=== PATIENT | male | born 1960 | race Hispanic/Latino ===

== ENCOUNTER 2019-04-23 17:30 | Inpatient (IN) | payer BC, SELFPAY ==
[2019-04-23 18:33] LABS: #Eosinphils 0.1 thou/uL (0.0-0.7); #Lymphocytes 1.3 thou/uL (1.20-3.40); #Monocytes 0.8 thou/uL (0.11-0.59); #Neutrophils 7.5 thou/uL (1.40-6.50); %Basophils 0.2 % (0.0-1.0); %Eosinophils 0.7 % (0.0-10.0); %Monocytes 8.2 % (0.0-10.0); Hemoglobin 15.1 g/dL (14.0-18.0); Mean Corpuscular HGB CONC 35.6 g/dL (32.0-36.0); Mean Corpuscular Hemoglobin 32.8 pg (27.0-31.0); Mean Corpuscular Volume 92.2 fL (78.0-98.0); Mean Platelet Volume 8.6 fL (7.4-10.4); Platelet Count 238 thou/uL (130-400); RBC Distribution Width 11.1 % (11.5-14.5); White Blood Cell (WBC) Count 9.6 thou/uL (4.8-10.8)
--- NOTE | 2019-04-23 18:50 | RAD ---
XR Foot Lt 3 View STANDARD History: Pain Comparison: None. Findings: There is erosion of the distal phalanx tuft small toe. Curvilinear radiopacity projects ove r the nail of the fourth toe. Osseous erosion of the proximal phalanx head middle toe with extensive soft tissue swelling. Large osteophyte of the calcaneus at the calcaneocuboid joint. Impression: 1. Findings concerning for osteomyelitis proximal phalanx head and neck middle toe. 2. Curvilinear radiopacity seen over the nailbed of the left fourth toe only on the AP radiograph.
[2019-04-23 18:58] LABS: ALT (SGPT) 11 U/L (8-55); AST (SGOT) 13 U/L (5-34); Albumin 4.2 g/dL (3.5-5.0); Alkaline Phosphatase 92 U/L (40-110); Anion Gap 12 mmol/L (10-20); BUN (Urea Nitrogen) 9 mg/dL (8.4-25.7); Bilirubin, Total 0.9 mg/dL (0.2-1.2); Calc. Creatinine Clearance 0 mL/min (70-130); Calcium 9.4 mg/dL (7.8-10.44); Carbon Dioxide 27 mmol/L (22-29); Chloride 100 mmol/L (98-107); Estimated GFR-MDRD 85; Globulin 3.2 g/dL (2.4-3.5); Glucose 318 mg/dL (70-105); Protein, Total 7.4 g/dL (6.0-8.3); Sodium 135 mmol/L (136-145)
[2019-04-23] MEDS ORDERED: MEROPENEM 1 GM/50 ML BAG IVPB SCH (20:00)
[2019-04-23] MEDS ORDERED: Acetaminophen 650 MG Suppository PR PRN (23:33)
[2019-04-23] MEDS ORDERED: Ondansetron PF 4 MG/2 ML Vial IVP PRN (23:33)
[2019-04-23] MEDS ORDERED: Ondansetron ODT 4 MG TAB PO PRN (23:33)
[2019-04-23] MEDS ORDERED: Acetaminophen 325 MG TAB PO PRN (23:33)
[2019-04-24] MEDS ORDERED: Dextrose 5% in Water 1,000 ML IV PRN (03:03)
[2019-04-24] MEDS ORDERED: HumaLOG 300 UNITS/3 ML VIAL SC PRN (03:03)
[2019-04-24] MEDS ORDERED: Dextrose 50% Abboject 50 ML SYRINGE SLOW IVP PRN (03:03)
[2019-04-24] MEDS: HumaLOG 300 UNITS/3 ML VIAL SC PRN (05:27)
[2019-04-24] MEDS: Piperacillin/Tazobactam 4.5 GM in Sodium Chloride 0.9% 100 ML IVPB SCH ×3 (05:27→19:49)
[2019-04-24 05:29] LABS: #Eosinphils 0.1 thou/uL (0.0-0.7); #Lymphocytes 1.5 thou/uL (1.20-3.40); #Neutrophils 6.3 thou/uL (1.40-6.50); %Basophils 0.2 % (0.0-1.0); %Eosinophils 1.6 % (0.0-10.0); %Lymphocytes 17.2 % (21.0-51.0); %Monocytes 10.6 % (0.0-10.0); %Neutrophils 70.4 % (42.0-75.0); Mean Corpuscular HGB CONC 35.7 g/dL (32.0-36.0); Mean Corpuscular Hemoglobin 33.1 pg (27.0-31.0); Mean Corpuscular Volume 92.8 fL (78.0-98.0); Mean Platelet Volume 8.7 fL (7.4-10.4); Platelet Count 221 thou/uL (130-400); RBC Distribution Width 11.1 % (11.5-14.5); Red Blood Cell (RBC) Count 3.94 mill/uL (4.70-6.10)
[2019-04-24 05:43] LABS: Anion Gap 10 mmol/L (10-20); BUN (Urea Nitrogen) 7 mg/dL (8.4-25.7); Calc. Creatinine Clearance 96 mL/min (70-130); Calcium 8.3 mg/dL (7.8-10.44); Carbon Dioxide 25 mmol/L (22-29); Chloride 104 mmol/L (98-107); Estimated GFR-MDRD Greater than 90; Glucose 221 mg/dL (70-105); Potassium 3.6 mmol/L (3.5-5.1); Sodium 135 mmol/L (136-145)
--- NOTE | 2019-04-24 06:31 | HP ---
PRIMARY CARE DOCTOR: The patient has no PCP. CODE STATUS: Full code. TIME OF EVALUATION: 09:30 p.m. CHIEF COMPLAINT: Swelling to the left ankle. HISTORY OF PRESENT ILLNESS: This is a 58-year-old male patient with past medical history of diabetes type 2, came, who have no treatment at home. No primary care doctor. Came to the hospital after having swelling of the left ankle and also sole of his third toe. The symptoms started 15 days ago with no clear triggers, no alleviating factors, and has been gradually getting worse until the point that the pain does not allow him to do his activities of daily living. REVIEW OF SYSTEMS: CONSTITUTIONAL: No fever or chills. The patient has generalized weakness. RESPIRATORY: No cough, sputum production, or shortness of breath. CARDIOVASCULAR: No chest pain or palpitation. GASTROINTESTINAL: No nausea. No vomiting, diarrhea, or abdominal pain. PHP SOFTWARE ENGINEER: No dizziness, headache, or feeling lightheaded. GENITOURINARY: No burning urination. EXTREMITIES: The patient has left foot swelling with nonhealing ulcer on the third toe. All other systems were reviewed and negative except for the findings mentioned above. PAST MEDICAL HISTORY: Positive for diabetes type 2. PAST SURGICAL HISTORY: No surgical history. PSYCHIATRIC HISTORY: No previous psych history. SOCIAL HISTORY: The patient drinks socially twice a month. No drugs. No smoking history. FAMILY HISTORY: Mother had diabetes. KNOWN ALLERGIES: No known drug allergies. REPORTED MEDICATIONS: None. PHYSICAL EXAMINATION: VITAL SIGNS: On presentation, blood pressure 167/77, heart rate 78, respiratory rate was 20, and temperature 99.5. Pain was 0/10. Oxygen saturation was 99% on room air. GENERAL APPEARANCE: The patient is alert, oriented, in no acute distress. HEENT: Eyes, normal conjunctivae. Moist oral mucosa. Anicteric. No JVD. RESPIRATORY: Bilateral air entry. No rales. No wheezes. Symmetric expansion. CARDIOVASCULAR: Normal rate. Regular rhythm. No murmurs. No gallop. No edema. ABDOMEN: Soft. Normal bowel sounds. MUSCULOSKELETAL: Baseline range of motion and strength except for the left foot and third toe on the left foot that has a nonhealing ulcer. It is very tender, swelling, has redness. SKIN: Warm and intact. No pallor. No rash. No redness. There are some chronic skin trophic changes in bilateral lower extremities. NEURO: No evidence of any new focal weakness. Cranial nerves seem to be intact. PSYCH: The patient is in good mood. No anxiety. Optimal judgment. DIAGNOSTIC STUDIES: X-ray of the foot shows findings concerning for osteomyelitis proximal phalanx, head and neck of the middle toe. Curvilinear radiopacity seen over the nailbed of the left fourth toe, all in the IP radiography. LABORATORY DATA: Reviewed. The patient has a white count 9.6, hemoglobin 15.1, MCV 92.2, platelet count 238, neutrophils 78, and lymphocytes 13. Sodium 135, potassium 4.0, chloride 100, carbon-dioxide 27, anion gap 12, BUN 9, creatinine 0.91, GFR 85, glucose 319, lactic acid 1.2, and total bilirubin 0.9. LFTs were negative. C-reactive protein 5.37. ASSESSMENT AND PLAN: The patient will be placed in the hospital with following medical problems. 1. Osteomyelitis of the foot and toe. The patient has been placed on antibiotics. We will consult Dr. Oviedo. Follow up sensitivity. Adjust treatment as per sensitivity, continue hydration. 2. Uncontrolled diabetes. The patient has hyperglycemia with glucose of 387. We will monitor. We will start the patient on sliding scale and adjust insulin dose as per the patient's response to treatment. 3. Deep vein thrombosis prophylaxis. Job ID: [id number]
[2019-04-24] MEDS: Enoxaparin Sodium 40 MG/0.4 ML SYRINGE SC SCH (10:01)
[2019-04-24] MEDS: Vancomycin HCl 1 GM in Premix Bag 1 BAG IVPB SCH (13:02)
[2019-04-24 14:09] VITALS: BMI 28.0
[2019-04-24] MEDS ORDERED: Polyethylene Glycol 3350 17 GM Packet PO PRN (15:32)
--- NOTE | 2019-04-24 15:40 | CON ---
DATE OF CONSULTATION: 04/24/2019 REASON FOR CONSULTATION: Foot osteomyelitis. HISTORY OF PRESENT ILLNESS: A 58-year-old, history of type 2 diabetes with poor medical followup, who was admitted yesterday with persistent swelling of the left ankle and third toe and pain in the distal aspect of the left foot. Initial evaluation with a temperature 99.5, BP 170/90, and pulse 64. The exam findings were remarkable for erythema of the left forefoot dorsal aspect and swelling of the left third toe with a little fissure, which probes to bone at the proximal phalanx lateral aspect of left third toe. The patient was admitted and placed on Zosyn and vancomycin. Currently, he is awake and alert. Denies any headaches, visual symptoms, sore throat, odynophagia, dysphagia. No cough, sputum production, or chest pain. No abdominal pain or diarrhea. No genitourinary symptoms. No other joint symptoms. No neurological symptoms. PAST MEDICAL HISTORY: Type 2 diabetes with poor medical followup. PAST SURGICAL HISTORY: No surgical history. SOCIAL HISTORY: Works with [employer] for [employer]. Drinks occasionally. Smokes daily about half a pack a day. . ALLERGIES: NONE. MEDICATIONS: Had not been taking medications for admission. Now, he is on, 1. P.r.n. medications. 2. Insulin. 3. Zosyn. 4. Vancomycin. PHYSICAL EXAMINATION: VITAL SIGNS: T-max 99.4, blood pressure 120/60, pulse 51, respirations 18, and O2 saturation 98%. SKIN: Shows the swelling of the left third toe with fissure at the lateral aspect of the middle of the third toe, which seems to communicate all the way to the bone. Some intertriginous maceration noted between the third and fourth and second and third toes. No lymphadenopathy. HEENT: Noncontributory. NECK: Supple. LUNGS: Symmetric. Clear breath sounds. HEART: S1 and S2. Regular rate. No S3 or S4. ABDOMEN: Soft, not distended or tender. No ascites. No bladder distention. GENITOURINARY: No genital abnormalities. EXTREMITIES: Pulses are 2+ in popliteal and dorsalis pedis. Cap refill is normal. Moves extremities equally. NEUROLOGIC: Cognitive function appears to be intact. LABORATORY DATA: White cell count was 9.6 and 9.0, hemoglobin 15, platelets 238, 78% neutrophils. Chemistry with a sodium of 135, creatinine 0.75. Liver profile normal. Albumin 4.2, and 2 sets of blood cultures thus far no growth. X-ray showed area of osteolysis of the distal aspect of the third toe proximal phalanx, the head of the proximal phalanx of third toe was pretty much destroyed. 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 DISCUSSION: The patient has excellent vascular supply, but there is too much destruction of the distal phalanx to allow conservative management and he will need surgical consultation for amputation of the third toe cultures and then transition to oral antimicrobial therapy for few days depending on the margin of clearance. The forefoot area has some cellulitis, but I do not think there is evidence to suggest abscess at this point in time. Job ID: [id number]
[2019-04-24] MEDS ORDERED: Sodium Chloride 0.45% 1,000 ML IV SCH (15:45)
--- NOTE | 2019-04-24 16:59 | CON ---
DATE OF CONSULTATION: HISTORY OF PRESENT ILLNESS: A 58-year-old male patient works at [employer], Pashto speaking only. I have used the price checker phone during this interaction. The patient has had a left third toe wound present for several weeks. He is admitted with cellulitis of his left foot. X-rays demonstrated osteomyelitis of the phalanx of the left third toe. Medical Service has admitted him. Orders written last night at 7:10. There was a consult placed to me this morning at 0751 hours. I was never called about this. I saw the patient on my patient list this afternoon. The patient had eaten breakfast. The patient has a wound over his lateral left third toe with purulent discharge and wound extends to the phalanx. X-rays demonstrate osteomyelitis. I have made him n.p.o., but by the time I see him and found him on my list (I was never informed this consult by any physician or tractor mechanic apprentice or nurse). I cannot get into the operating room until late this evening, thus his operation will have to be postponed until tomorrow. I have explained the patient, he needs amputation of left third toe. We will plan amputation of left third toe with application of the wound VAC and he continue intravenous antibiotics over the weekend. We will review the wound on Sunday. We will make arrangement for outpatient wound care anticipating discharge home early next week. ALLERGIES: NONE. SOCIAL HISTORY: Tobacco, 5 to 10 cigarettes a day. Alcohol, none. MEDICATIONS: None. In the hospital, he is on; 1. Insulin. 2. Zosyn. 3. Vancomycin. 4. Diabetic medications. PAST MEDICAL HISTORY: Diabetes mellitus type 2. He does not take any medications. PAST SURGICAL HISTORY: Past surgeries, none. SOCIAL HISTORY: The patient works at [employer]. PHYSICAL EXAMINATION: VITAL SIGNS: A 5 feet tall, 143 pounds, and 28 BMI. 98.5 degrees, 53, and 161/76. LUNGS: Clear to auscultation. CARDIAC: Regular rate and rhythm without murmur or gallop. ABDOMEN: Soft and nontender. EXTREMITIES: Palpable femoral, popliteal, dorsalis pedis, and posterior tibial pulses. Hair on his feet and toes. Cellulitis and edema left foot to the ankle. Left third toe edema and swelling with lateral ulcer in the web space, lateral aspect of the left third toe with extension to the bone and purulent discharge. LABORATORY DATA: White count 9 and hemoglobin 13. Basic metabolic profile normal. BUN 7, creatinine 0.75, and glucose 209. ASSESSMENT AND PLAN: 1. Noncompliant diabetes mellitus. 2. Diabetic infection with osteomyelitis left third toe. We will plan amputation of left third toe tomorrow, as by the time I am notified, this patient has eaten breakfast and I cannot get in the operating room until late this evening. I was not notified of this consult, but found it on my list. The patient understands risks and benefits, consents. Job ID: [id number]
--- NOTE | 2019-04-24 19:44 | PRG ---
DATE OF SERVICE: 04/24/2019 SUBJECTIVE: A 58-year-old male with diabetes mellitus, type 2 with medication noncompliance, presented to the hospital with left foot swelling. His workup in the ER was consistent with suspected osteomyelitis of the left third toe. He denies any fever or chills at this time. His temperature on admission was 99.4. REVIEW OF SYSTEMS: No chest pain, shortness of breath, nausea, vomiting, diarrhea reported. PHYSICAL EXAMINATION: VITAL SIGNS: Temperature 98.5, pulse of 53, respirations 20, blood pressure 161/76, O2 saturation 98% on room air. GENERAL: A 58-year-old male, in no apparent distress. LUNGS: Clear to auscultation bilaterally. No wheezing, rales, or rhonchi. HEART: S1 and S2 present. Regular rate and rhythm. No rubs or gallops. ABDOMEN: Soft, nontender. Bowel sounds present. EXTREMITIES: There is erythema over the left third toe with fissure over the lateral aspect, communicating all the way to the bone. There was also some skin maceration between the toes. PSYCHIATRY: Alert, awake, and oriented x3. Normal affect. LABORATORY FINDINGS: ESR of 13, CRP 5.37, blood sugar on admission was 318, sodium 135, potassium 4.0, hemoglobin 15.1. Foot x-ray by my review showed osteomyelitis of the third toe. IMPRESSION: 1. Diabetic foot infection with osteomyelitis of the left third toe. 2. Diabetes mellitus type 2, uncontrolled. 3. Hyponatremia. 4. Elevated inflammatory markers. 5. Medication noncompliance. 6. Tobacco dependence. PLAN: IV vancomycin and Zosyn will be continued. We will continue wound care. We will consult General Surgery and Infectious Disease. We will recheck labs in a.m. We will check hemoglobin A1c. We will keep him n.p.o. past midnight. Plan of care was discussed with the patient in detail. He stated understanding. Job ID: [id number]
[2019-04-24] MEDS ORDERED: Senokot S 8.6-50 MG TAB PO SCH (21:00)
[2019-04-25] MEDS: Vancomycin HCl 1 GM in Premix Bag 1 BAG IVPB SCH ×2 (00:37→14:22)
[2019-04-25] MEDS: Piperacillin/Tazobactam 4.5 GM in Sodium Chloride 0.9% 100 ML IVPB SCH ×3 (05:32→20:32)
[2019-04-25] MEDS: Enoxaparin Sodium 40 MG/0.4 ML SYRINGE SC SCH (07:32)
[2019-04-25] MEDS: Saccharomyces boulardii 250 MG CAP PO SCH (07:32)
[2019-04-25] MEDS ORDERED: Sodium Chloride 0.9% 1,000 ML IV SCH (08:00)
[2019-04-25 08:04] LABS: Hemoglobin A1c 9.3 % (4.0-6.0)
[2019-04-25 08:15] LABS: Anion Gap 10 mmol/L (10-20); BUN (Urea Nitrogen) 8 mg/dL (8.4-25.7); Calc. Creatinine Clearance 91 mL/min (70-130); Calcium 8.6 mg/dL (7.8-10.44); Carbon Dioxide 25 mmol/L (22-29); Chloride 104 mmol/L (98-107); Estimated GFR-MDRD Greater than 90; Glucose 236 mg/dL (70-105); Potassium 3.9 mmol/L (3.5-5.1); Sodium 135 mmol/L (136-145)
[2019-04-25] MEDS ORDERED: Sodium Chloride 0.9% 100 ML ONE (13:15)
[2019-04-25] MEDS ORDERED: Acetaminophen 500 MG TAB PO PRN (14:51)
[2019-04-25] MEDS ORDERED: Fentanyl 100 MCG/2 ML VIAL ONE ×2 (14:54→15:56)
[2019-04-25] MEDS ORDERED: Promethazine HCl 25 MG/ML VIAL IM PRN (15:59)
[2019-04-25] MEDS ORDERED: Ondansetron HCl/PF 4 MG/2 ML Vial IVP PRN (15:59)
[2019-04-25] MEDS ORDERED: Promethazine HCl 25 MG/ML VIAL SLOW IVP PRN (15:59)
[2019-04-25] MEDS: HumaLOG 300 UNITS/3 ML VIAL SC PRN (17:37)
[2019-04-25] MEDS: metFORMIN 500 MG TAB PO SCH (17:37)
[2019-04-25] MEDS: traMADol HCl 50 MG TAB PO PRN (20:30)
--- NOTE | 2019-04-25 20:41 | OP ---
DATE OF PROCEDURE: 04/24/2019 PREOPERATIVE DIAGNOSIS: Diabetic infection with osteomyelitis, left third toe. POSTOPERATIVE DIAGNOSIS: Diabetic infection with osteomyelitis, left third toe. PROCEDURE PERFORMED: Amputation of left third toe through the proximal phalanx, culture submitted. ANESTHESIA: Regional (ankle block), TIVA. DESCRIPTION OF PROCEDURE: The patient was taken to the operating room where under intravenous sedation, regional ankle block, the left lower extremity was prepared with Betadine and draped in routine fashion. Amputation of left third toe was performed with a racquet incision, transecting the proximal phalanx with a rongeur to healthy bone. Connective tissue debrided sharply. Wound irrigated. Culture had been obtained, submitted to Microbiology. The patient tolerated the procedure well. Wound care team arrived to place wound VAC, there was healthy bleeding. The patient had palpable pulses. Job ID: [id number]
--- NOTE | 2019-04-25 21:24 | PDOC.HOSPP ---
- Subjective Encounter Date: 04/25/19 Encounter Time: 07:00 Subjective: Patient seen and examined for diabetic foot infection. No fever/N/V. No overnight events - Objective Vital Signs & Weight: Vital Signs (12 hours) Temp Pulse Resp BP BP Pulse Ox 04/25/19 20:00 98.6 F 54 L 16 148/83 H 99 04/25/19 16:40 97.9 F 54 L 18 156/76 H 97 04/25/19 11:00 97.6 F 49 L 16 162/80 H 99 Weight Admit Weight 143 lb 5 oz Weight 143 lb 5 oz I&O: 04/24/19 04/25/19 04/26/19 06:59 06:59 06:59 Intake Total 600 Balance 600 Result Diagrams: 04/24/19 05:12 04/25/19 07:39 Additional Labs: Accuchecks 04/25/19 04/25/19 04/25/19 20:27 16:59 11:14 POC Glucose 218 H 191 H 221 H 04/25/19 04:31 POC Glucose 199 H Hospitalist ROS - Review of Systems Respiratory: denies: cough, dry, shortness of breath, hemoptysis, SOB with excertion, pleuritic pain, sputum, wheezing, other Cardiovascular: denies: chest pain, palpitations, orthopnea, paroxysmal noc. dyspnea, edema, light headedness, other - Medication Medications: Active Medications Generic Name Dose Route Start Last Admin Trade Name Freq PRN Reason Stop Dose Admin Enoxaparin Sodium 40 mg 04/24/19 09:00 04/25/19 07:32 Lovenox SC Not Given 0900 GERALDINE Piperacillin Sod/Tazobactam 100 mls @ 200 mls/hr 04/24/19 05:00 04/25/19 20: 32 Sod 4.5 gm/ Sodium Chloride IVPB 100 mls 0500,1300,2100 GERALDINE Administration Vancomycin HCl 1 gm/ Device 200 mls @ 200 mls/hr 04/24/19 12:00 04/25/19 14: 22 IVPB Not Given 1200,2359 GERALDINE Insulin Human Lispro 0 units 04/24/19 03:03 04/25/19 17:37 Humalog SC 2 unit .MILD SLIDING SCALE PRN Administration Mild Correctional Scale Insulin Human Lispro 0 units 04/24/19 03:03 04/25/19 20:33 Humalog SC 2 unit .BEDTIME SLIDING SC PRN Administration Bedtime Correctional Scale Metformin HCl 500 mg 04/25/19 17:00 04/25/19 17:37 Glucophage PO 500 mg BID-WM GERALDINE Administration Saccharomyces Boulardii 250 mg 04/25/19 09:00 04/25/19 07:32 Florastor PO Not Given DAILY GERALDINE Tramadol HCl 50 mg 04/24/19 15:32 04/25/19 20:30 Ultram PO 50 mg Q4H PRN Administration Moderate Pain (4-6) - Exam General Appearance: NAD Heart: RRR, no gallops Respiratory: CTAB, no rales Gastrointestinal: soft, non-tender, non-distended, normal bowel sounds Extremities: no edema Extremities - other findings: no new findings Hosp A/P - Plan DVT proph w/lovenox, DVT proph w/SCDs IMPRESSION: 1. Diabetic foot infection with osteomyelitis of the left third toe. 2. Diabetes mellitus type 2, uncontrolled. 3. Hyponatremia. 4. Elevated inflammatory markers. 5. Medication noncompliance. 6. Tobacco dependence. PLAN: Cont IV vancomycin and Zosyn Start Glipizide and Metformin Continue wound care. Surgery today
[2019-04-25 23:57] LABS: Vancomycin, Trough 11.5 ug/mL
[2019-04-26] MEDS: Vancomycin HCl 1 GM in Premix Bag 1 BAG IVPB SCH (00:09)
[2019-04-26] MEDS: Vancomycin HCl 1.25 GM in Sodium Chloride 0.9% 250 ML 250 ML IVPB SCH ×3 (00:12→23:43)
[2019-04-26] MEDS: Piperacillin/Tazobactam 4.5 GM in Sodium Chloride 0.9% 100 ML IVPB SCH ×3 (04:54→20:36)
[2019-04-26] MEDS ORDERED: glipiZIDE 5 MG TAB PO SCH (07:30)
[2019-04-26] MEDS: metFORMIN 500 MG TAB PO SCH ×2 (08:22→17:29)
[2019-04-26] MEDS: glipiZIDE 5 MG TAB PO SCH ×2 (08:22→17:29)
[2019-04-26] MEDS: Saccharomyces boulardii 250 MG CAP PO SCH (08:22)
[2019-04-26] MEDS: Enoxaparin Sodium 40 MG/0.4 ML SYRINGE SC SCH (08:23)
[2019-04-26] MEDS: traMADol HCl 50 MG TAB PO PRN ×2 (11:53→17:31)
[2019-04-26] MEDS: HumaLOG 300 UNITS/3 ML VIAL SC PRN (11:54)
--- NOTE | 2019-04-26 17:04 | PRG ---
DATE OF SERVICE: 04/26/2019 SUBJECTIVE: The patient had a surgical amputation by Dr. Cruz at the proximal phalanx level. He is otherwise without any changes, symptoms. OBJECTIVE: VITAL SIGNS: Normal except for elevation of systolic blood pressure. He is afebrile. LUNGS: Clear. HEART: S1, S2. Regular rate. ABDOMEN: Soft. Not distended or tender. LABORATORY DATA: The labs are unremarkable. Cultures from the toe with Streptococcus group C. ASSESSMENT AND DISCUSSION: Type-2 diabetes with chronic fissure, left third toe with osteomyelitis, status post amputation proximal to the area of involvement. At this point, I would advise transition to Keflex 500 mg q.6 hours for discharge planning, treat for about 10 days. Follow up clinical course. We will be glad to follow him up in the clinic. Job ID: [id number]
--- NOTE | 2019-04-26 21:31 | PDOC.HOSPP ---
- Subjective Encounter Date: 04/26/19 Encounter Time: 14:30 Subjective: Patient seen and examined for diabetic foot infection. Pain controlled. No fever or chills. No other complaints. No overnight events - Objective Vital Signs & Weight: Vital Signs (12 hours) Temp Pulse Resp BP Pulse Ox 04/26/19 16:00 98.7 F 54 L 16 160/83 H 93 L 04/26/19 11:34 98.5 F 50 L 20 193/89 H 98 Weight Admit Weight 143 lb 5 oz Weight 143 lb 5 oz I&O: 04/25/19 04/26/19 04/27/19 06:59 06:59 06:59 Intake Total 540 Output Total 400 Balance 140 Result Diagrams: 04/24/19 05:12 04/25/19 07:39 Additional Labs: Accuchecks 04/26/19 04/26/19 04/26/19 20:17 16:38 11:22 POC Glucose 151 H 105 188 H 04/26/19 05:22 POC Glucose 109 Hospitalist ROS - Review of Systems Respiratory: denies: cough, dry, shortness of breath, hemoptysis, SOB with excertion, pleuritic pain, sputum, wheezing, other Cardiovascular: denies: chest pain, palpitations, orthopnea, paroxysmal noc. dyspnea, edema, light headedness, other - Medication Medications: Active Medications Generic Name Dose Route Start Last Admin Trade Name Freq PRN Reason Stop Dose Admin Enoxaparin Sodium 40 mg 04/24/19 09:00 04/26/19 08:23 Lovenox SC 40 mg 0900 GERALDINE Administration Glipizide 5 mg 04/26/19 07:30 04/26/19 17:29 Glucotrol PO 5 mg BID-AC GERALDINE Administration Piperacillin Sod/Tazobactam 100 mls @ 200 mls/hr 04/24/19 05:00 04/26/19 20: 36 Sod 4.5 gm/ Sodium Chloride IVPB 04/26/19 23:59 100 mls 0500,1300,2100 GERALDINE Administration Vancomycin HCl 1.25 gm/ Sodium 250 mls @ 166.667 mls/hr 04/25/19 23:59 13:16 Chloride IVPB 04/27/19 07:00 250 mls 1200,2359 GERALDINE Administration Insulin Human Lispro 0 units 04/24/19 03:03 04/26/19 11:54 Humalog SC 2 unit .MILD SLIDING SCALE PRN Administration Mild Correctional Scale Insulin Human Lispro 0 units 04/24/19 03:03 04/25/19 20:33 Humalog SC 2 unit .BEDTIME SLIDING SC PRN Administration Bedtime Correctional Scale Metformin HCl 500 mg 04/25/19 17:00 04/26/19 17:29 Glucophage PO 500 mg BID-WM GERALDINE Administration Saccharomyces Boulardii 250 mg 04/25/19 09:00 04/26/19 08:22 Florastor PO 250 mg DAILY GERALDINE Administration Tramadol HCl 50 mg 04/24/19 15:32 04/26/19 17:31 Ultram PO 50 mg Q4H PRN Administration Moderate Pain (4-6) - Exam General Appearance: NAD Heart: RRR, no gallops Respiratory: CTAB, no rales Gastrointestinal: soft, non-tender, normal bowel sounds Extremities: no edema Hosp A/P - Plan DVT proph w/SCDs IMPRESSION: 1. Diabetic foot infection with osteomyelitis of the left third toe. 2. Diabetes mellitus type 2, uncontrolled. 3. Hyponatremia. 4. Elevated inflammatory markers. 5. Medication noncompliance. 6. Tobacco dependence. PLAN: DC IV vancomycin and Zosyn Start Keflex x 10d per ID Cont wound vac Cont Glipizide and Metformin Continue wound care. DC home once cleared by Surgery
[2019-04-26] MEDS: Cephalexin 250 MG CAP PO SCH (23:44)
[2019-04-27] MEDS: Cephalexin 250 MG CAP PO SCH ×4 (06:02→23:50)
[2019-04-27] MEDS: traMADol HCl 50 MG TAB PO PRN (09:17)
[2019-04-27] MEDS: glipiZIDE 5 MG TAB PO SCH ×2 (09:17→17:19)
[2019-04-27] MEDS: Saccharomyces boulardii 250 MG CAP PO SCH (09:17)
[2019-04-27] MEDS: metFORMIN 500 MG TAB PO SCH ×2 (09:17→17:19)
[2019-04-27] MEDS: Enoxaparin Sodium 40 MG/0.4 ML SYRINGE SC SCH (09:18)
[2019-04-27] MEDS: HumaLOG 300 UNITS/3 ML VIAL SC PRN (12:01)
--- NOTE | 2019-04-27 16:23 | PDOC.HOSPP ---
- Subjective Encounter Date: 04/27/19 Encounter Time: 10:30 Subjective: pt up in chair no complains - Objective Vital Signs & Weight: Vital Signs (12 hours) Temp Pulse Resp BP Pulse Ox 04/27/19 08:21 98.5 F 58 L 16 155/70 H 97 04/27/19 08:00 97 Weight Admit Weight 143 lb 5 oz Weight 143 lb 5 oz I&O: 04/26/19 04/27/19 04/28/19 06:59 06:59 06:59 Intake Total 540 Output Total 400 Balance 140 Result Diagrams: 04/24/19 05:12 04/25/19 07:39 Additional Labs: Accuchecks 04/27/19 04/27/19 04/26/19 11:04 06:05 20:17 POC Glucose 209 H 122 H 151 H 04/26/19 16:38 POC Glucose 105 Hospitalist ROS - Review of Systems Respiratory: denies: cough, dry, shortness of breath, hemoptysis, SOB with excertion, pleuritic pain, sputum, wheezing, other Cardiovascular: denies: chest pain, palpitations, orthopnea, paroxysmal noc. dyspnea, edema, light headedness, other Gastrointestinal: denies: nausea, vomiting, abdominal pain, diarrhea, constipation, melena, hematochezia, other - Medication Medications: Active Medications Generic Name Dose Route Start Last Admin Trade Name Freq PRN Reason Stop Dose Admin Cephalexin 500 mg 04/26/19 23:59 04/27/19 12:01 Keflex PO 500 mg Q6HR GERALDINE Administration Enoxaparin Sodium 40 mg 04/24/19 09:00 04/27/19 09:18 Lovenox SC 40 mg 0900 GERALDINE Administration Glipizide 5 mg 04/26/19 07:30 04/27/19 09:17 Glucotrol PO 5 mg BID-AC GERALDINE Administration Insulin Human Lispro 0 units 04/24/19 03:03 04/27/19 12:01 Humalog SC 3 unit .MILD SLIDING SCALE PRN Administration Mild Correctional Scale Insulin Human Lispro 0 units 04/24/19 03:03 04/25/19 20:33 Humalog SC 2 unit .BEDTIME SLIDING SC PRN Administration Bedtime Correctional Scale Metformin HCl 500 mg 04/25/19 17:00 04/27/19 09:17 Glucophage PO 500 mg BID-WM GERALDINE Administration Saccharomyces Boulardii 250 mg 04/25/19 09:00 04/27/19 09:17 Florastor PO 250 mg DAILY GERALDINE Administration Tramadol HCl 50 mg 04/24/19 15:32 04/27/19 09:17 Ultram PO 50 mg Q4H PRN Administration Moderate Pain (4-6) - Exam Heart: RRR, no murmur, no gallops Respiratory: no wheezes, no rales Gastrointestinal: soft, non-tender, non-distended Hosp A/P (1) Diabetic foot infection Code(s): E11.628 - TYPE 2 DIABETES MELLITUS WITH OTHER SKIN COMPLICATIONS; L08.9 - LOCAL INFECTION OF THE SKIN AND SUBCUTANEOUS TISSUE, UNSP Status: Acute (2) Osteomyelitis Code(s): M86.9 - OSTEOMYELITIS, UNSPECIFIED Status: Acute (3) Hyponatremia Code(s): E87.1 - HYPO-OSMOLALITY AND HYPONATREMIA Status: Acute (4) Diabetes Code(s): E11.9 - TYPE 2 DIABETES MELLITUS WITHOUT COMPLICATIONS Status: Acute - Plan pt on oral abx, pt needs set up for his wound vac. may be discharged in am if ok with surgery.
[2019-04-28] MEDS: Cephalexin 250 MG CAP PO SCH ×3 (05:50→17:03)
[2019-04-28] MEDS: traMADol HCl 50 MG TAB PO PRN (08:29)
[2019-04-28] MEDS: metFORMIN 500 MG TAB PO SCH ×2 (08:29→17:04)
[2019-04-28] MEDS: glipiZIDE 5 MG TAB PO SCH ×2 (08:29→17:04)
[2019-04-28] MEDS: Saccharomyces boulardii 250 MG CAP PO SCH (08:29)
[2019-04-28] MEDS: Enoxaparin Sodium 40 MG/0.4 ML SYRINGE SC SCH (08:30)
--- NOTE | 2019-04-28 11:33 | EKG ---
Test Reason : URGENT Blood Pressure : / mmHG Vent. Rate : 049 BPM Atrial Rate : 049 BPM P-R Int : 156 ms QRS Dur : 110 ms QT Int : 476 ms P-R-T Axes : 024 086 020 degrees QTc Int : 429 ms Sinus bradycardia T wave abnormality, consider lateral ischemia Abnormal ECG No previous ECGs available Confirmed by Tyrone GRIDER ([id number]) on 04/28/2019 11:32:35 AM Referred By: ELIE Confirmed By:Tyrone GRIDER
--- NOTE | 2019-04-28 18:08 | PRG ---
DATE OF SERVICE: 04/28/2019 Sebas White is doing well today. His dressing was removed. His foot looks very good. There is no evidence of infection or cellulitis. Cultures revealed Streptococcus. At this point, the patient is ready for discharge home with outpatient [facility]. He can be sent on Augmentin 875 p.o. b.i.d. for 10 days. The patient is stable for discharge from my standpoint. I will see him as needed this hospitalization. He will follow up with outpatient wound care. They will call me wound in 2 to 3 weeks or I will see him in the office Job ID: [id number]
[2019-04-29] MEDS: Cephalexin 250 MG CAP PO SCH ×2 (00:31→05:20)
[2019-04-29] MEDS: traMADol HCl 50 MG TAB PO PRN (00:36)
[2019-04-29] MEDS: HumaLOG 300 UNITS/3 ML VIAL SC PRN (05:22)
--- NOTE | 2019-04-29 07:23 | PDOC.HOSPP ---
- Subjective Encounter Date: 04/28/19 Encounter Time: 11:00 Subjective: Patient seen and examined for Osteomyelitis. No fever. Pain controlled. No other complaints. No overnight events - Objective Vital Signs & Weight: Vital Signs (12 hours) Temp Pulse Resp BP Pulse Ox 04/28/19 20:00 98.7 F 54 L 20 161/77 H 96 Weight Admit Weight 143 lb 5 oz Weight 143 lb 5 oz I&O: 04/28/19 04/29/19 04/30/19 06:59 06:59 06:59 Intake Total 1360 Output Total 750 0 Balance -750 1360 Result Diagrams: 04/24/19 05:12 04/25/19 07:39 Additional Labs: Accuchecks 04/29/19 04/28/19 04/28/19 05:09 20:14 16:04 POC Glucose 246 H 155 H 151 H 04/28/19 12:24 POC Glucose 122 H Hospitalist ROS - Review of Systems Cardiovascular: denies: chest pain, palpitations, orthopnea, paroxysmal noc. dyspnea, edema, light headedness, other Gastrointestinal: denies: nausea, vomiting, abdominal pain, diarrhea, constipation, melena, hematochezia, other - Medication Medications: Active Medications Generic Name Dose Route Start Last Admin Trade Name Freq PRN Reason Stop Dose Admin Acetaminophen 1,000 mg 04/25/19 14:51 04/29/19 00:40 Tylenol PO 1,000 mg Q6H PRN Administration Moderate to Severe Pain (6-10) Enoxaparin Sodium 40 mg 04/24/19 09:00 04/28/19 08:30 Lovenox SC 40 mg 0900 GERALDINE Administration Glipizide 5 mg 04/26/19 07:30 04/28/19 17:04 Glucotrol PO 5 mg BID-AC GERALDINE Administration Insulin Human Lispro 0 units 04/24/19 03:03 04/29/19 05:22 Humalog SC 3 unit .MILD SLIDING SCALE PRN Administration Mild Correctional Scale Insulin Human Lispro 0 units 04/24/19 03:03 04/25/19 20:33 Humalog SC 2 unit .BEDTIME SLIDING SC PRN Administration Bedtime Correctional Scale Metformin HCl 500 mg 04/25/19 17:00 04/28/19 17:04 Glucophage PO 500 mg BID-WM GERALDINE Administration Polyethylene Glycol 17 gm 04/24/19 15:32 04/28/19 11:33 Miralax PO 17 gm DAILY PRN Administration Constipation Saccharomyces Boulardii 250 mg 04/25/19 09:00 04/28/19 08:29 Florastor PO 250 mg DAILY GERALDINE Administration Tramadol HCl 50 mg 04/24/19 15:32 04/29/19 00:36 Ultram PO 50 mg Q4H PRN Administration Moderate Pain (4-6) - Exam General Appearance: NAD Heart: RRR, no rubs Respiratory: CTAB, no rales Gastrointestinal: soft, non-tender, normal bowel sounds Extremities: no edema Extremities - other findings: wound vac+ Hosp A/P - Plan IMPRESSION: 1. Diabetic foot infection with osteomyelitis of the left third toe. s/p amputation 2. Diabetes mellitus type 2, uncontrolled. 3. Hyponatremia. 4. Elevated inflammatory markers. 5. Medication noncompliance. 6. Tobacco dependence. PLAN: Cont Keflex per ID Cont wound vac/wound care Cont Glipizide and Metformin DC home once home wound vac arranged
[2019-04-29] MEDS: metFORMIN 500 MG TAB PO SCH ×2 (07:54→16:58)
[2019-04-29] MEDS: Enoxaparin Sodium 40 MG/0.4 ML SYRINGE SC SCH (07:54)
[2019-04-29] MEDS: glipiZIDE 5 MG TAB PO SCH ×2 (07:54→16:58)
[2019-04-29] MEDS: Saccharomyces boulardii 250 MG CAP PO SCH (07:54)
[2019-04-29] MEDS ORDERED: Amoxicillin/Potassium Clav 875 MG TAB PO SCH (09:00)
--- NOTE | 2019-04-29 12:43 | PDOC.HOSPP ---
- Subjective Encounter Date: 04/29/19 Encounter Time: 12:41 Subjective: Patient seen and examined for Osteomyelitis. No fever/chills. No new complaints. No overnight events - Objective Vital Signs & Weight: Vital Signs (12 hours) Temp Pulse Resp BP Pulse Ox 04/29/19 07:55 95 04/29/19 07:50 98.4 F 58 L 18 150/72 H 95 Weight Admit Weight 143 lb 5 oz Weight 143 lb 5 oz I&O: 04/28/19 04/29/19 04/30/19 06:59 06:59 06:59 Intake Total 1360 Output Total 750 0 0 Balance -750 1360 0 Result Diagrams: 04/24/19 05:12 04/25/19 07:39 Additional Labs: Accuchecks 04/29/19 04/29/19 04/28/19 11:37 05:09 20:14 POC Glucose 133 H 246 H 155 H 04/28/19 16:04 POC Glucose 151 H Hospitalist ROS - Review of Systems Respiratory: denies: cough, dry, shortness of breath, hemoptysis, SOB with excertion, pleuritic pain, sputum, wheezing, other Cardiovascular: denies: chest pain, palpitations, orthopnea, paroxysmal noc. dyspnea, edema, light headedness, other - Medication Medications: Active Medications Generic Name Dose Route Start Last Admin Trade Name Freq PRN Reason Stop Dose Admin Acetaminophen 1,000 mg 04/25/19 14:51 04/29/19 00:40 Tylenol PO 1,000 mg Q6H PRN Administration Moderate to Severe Pain (6-10) Amoxicillin/Clavulanate Potassium 875 mg 04/29/19 09:00 04/29/19 07:54 Augmentin PO 875 mg Q12HR GERALDINE Administration Enoxaparin Sodium 40 mg 04/24/19 09:00 04/29/19 07:54 Lovenox SC 40 mg 0900 GERALDINE Administration Glipizide 5 mg 04/26/19 07:30 04/29/19 07:54 Glucotrol PO 5 mg BID-AC GERALDINE Administration Insulin Human Lispro 0 units 04/24/19 03:03 04/29/19 05:22 Humalog SC 3 unit .MILD SLIDING SCALE PRN Administration Mild Correctional Scale Insulin Human Lispro 0 units 04/24/19 03:03 04/25/19 20:33 Humalog SC 2 unit .BEDTIME SLIDING SC PRN Administration Bedtime Correctional Scale Metformin HCl 500 mg 04/25/19 17:00 04/29/19 07:54 Glucophage PO 500 mg BID-WM GERALDINE Administration Polyethylene Glycol 17 gm 04/24/19 15:32 04/28/19 11:33 Miralax PO 17 gm DAILY PRN Administration Constipation Saccharomyces Boulardii 250 mg 04/25/19 09:00 04/29/19 07:54 Florastor PO 250 mg DAILY GERALDINE Administration Tramadol HCl 50 mg 04/24/19 15:32 04/29/19 00:36 Ultram PO 50 mg Q4H PRN Administration Moderate Pain (4-6) - Exam General Appearance: NAD Heart: RRR, no gallops Respiratory: CTAB, no rales Gastrointestinal: soft, non-tender, normal bowel sounds Extremities: no edema Hosp A/P - Plan IMPRESSION: 1. Diabetic foot infection with osteomyelitis of the left third toe. s/p amputation 2. Diabetes mellitus type 2, uncontrolled. 3. Hyponatremia. 4. Elevated inflammatory markers. 5. Medication noncompliance. 6. Tobacco dependence. PLAN: Start Augmentin per Dr Cruz Cont other meds including Glipizide and Metformin Await home wound vac Cont wound vac/wound care
[2019-04-29 18:37] VITALS: BP 158/80; TEMP 98.3
--- NOTE | 2019-04-29 20:12 | DIS ---
DATE OF ADMISSION: 04/23/2019 DATE OF DISCHARGE: 04/29/2019 DISCHARGE DISPOSITION: Home. FOLLOWUP: 1. Follow up with [facility] in 1 week. 2. Follow up with Dr. Cruz as scheduled. ALLERGIES: NO KNOWN DRUG ALLERGIES. DISCHARGE MEDICATIONS: 1. Augmentin 875 mg b.i.d. for next 10 days. 2. Glipizide 5 mg b.i.d. 3. Metformin 500 mg b.i.d. The patient was extensively counseled on diabetes. The patient was seen and examined on the day of discharge. Please refer to my progress notes for detail. BRIEF HOSPITAL COURSE: The patient is a 58-year-old male with diabetes mellitus type 2 and medication noncompliance presented to the hospital with swelling of the left ankle. His workup was consistent with osteomyelitis of the left third toe along with left foot cellulitis. He underwent amputation of the left third toe by Dr. Cruz on April 25, 2019. Postoperatively, he was placed on wound VAC. Home wound VAC has been arranged through [facility]. He appears stable for discharge. His surgical specimen was consistent with acute osteomyelitis with ischemic ulceration. FINAL DIAGNOSES: 1. Left foot diabetic infection along with third toe osteomyelitis. 2. Diabetes mellitus type 2, uncontrolled. His hemoglobin A1c was 9.3. 3. Hyponatremia. 4. Elevated inflammatory markers. 5. Tobacco dependence. 6. Medication noncompliance. PLAN: Plan of care was discussed with the patient in detail. He stated understanding. Coordinating the discharge of this patient was 30. Job ID: [id number]
== END 2019-04-29 18:50 | disposition home or self-care (01) | DRG 617 ==
LOC: ERS 17:30 → T4-A 19:00
PROVIDERS: ADMIT Internal Medicine; ATTEND Internal Medicine
PROC: 0Y6U0Z1 Detachment at Left 3rd Toe, High, Open Approach (ICD-10-PCS; principal; 2019-04-24)
PROC: 3E0234Z Introduction of Serum, Toxoid and Vaccine into Muscle, Percutaneous Approach (ICD-10-PCS; 2019-04-25)
DX: E11.69 Type 2 diabetes mellitus with other specified complication (principal); L03.116 Cellulitis of left lower limb; E87.1 Hypo-osmolality and hyponatremia; M86.172 Other acute osteomyelitis, left ankle and foot; E11.65 Type 2 diabetes mellitus with hyperglycemia; F17.210 Nicotine dependence, cigarettes, uncomplicated; E11.621 Type 2 diabetes mellitus with foot ulcer; L97.529 Non-pressure chronic ulcer of other part of left foot with unspecified severity; Z91.14 Patient's other noncompliance with medication regimen; Z23 Encounter for immunization
CPT/HCPCS: 36415; 36416; 80048; 80053; 80202; 83036; 83605; 85025; 85652; 86140; 87040; 87070; 87077; 87205; 88305; 88311; 90471; 90732; 93005; 93010; 96365; 96367; G0009; J1650; J2185; J2543; J3010; J3370; J3490; J7050

== ENCOUNTER 2019-05-02 11:16 | Outpatient (CLI) | payer BC ==
[~2019-05-02 11:16] MED LIST: Sodium Chloride 0.9% 15 ML NEB ONE
== END 2019-05-02 11:17 | disposition home or self-care (01) ==
LOC: WCC 11:16
PROVIDERS: ATTEND Family Medicine
DX: L03.116 Cellulitis of left lower limb (principal); M86.9 Osteomyelitis, unspecified
CPT/HCPCS: A4218

== ENCOUNTER 2019-05-06 13:00 | Outpatient (CLI) | payer BC ==
[2019-05-06] MEDS ORDERED: Sodium Chloride 0.9% 15 ML NEB ONE (18:00)
== END 2019-05-06 13:01 | disposition home or self-care (01) ==
LOC: WCC 13:00
PROVIDERS: ATTEND Family Medicine
DX: T81.89XD Other complications of procedures, not elsewhere classified, subsequent encounter (principal)
CPT/HCPCS: 97605; A4218

== ENCOUNTER 2019-05-08 15:44 | Outpatient (CLI) | payer BC ==
[~2019-05-08 15:44] MED LIST changes: +Lidocaine 2% PF 100 mg/5 ml Syringe ONE
--- NOTE | 2019-05-08 22:25 | HP ---
HISTORY OF PRESENT ILLNESS: Mr. Sebas White is a very pleasant 58-year-old gentleman, who presents to the wound center for evaluation of a wound of the left third toe subsequent to amputation of the left third toe through the proximal phalanx by Dr. Bakari Cruz on 04/24/2019, for treatment of osteomyelitis of the left third toe. Negative pressure therapy was initiated intraoperatively. Upon discharge from [facility], the patient was referred to the wound center for assistance with dressing changes of the wound VAC. The patient was discharged to home on Augmentin. The patient is Togolese-speaking only. PAST MEDICAL HISTORY: Diabetes mellitus. PAST SURGICAL HISTORY: Amputation of left third toe through the proximal phalanx as per HPI. MEDICATIONS: 1. Glipizide. 2. Metformin. 3. Augmentin. ALLERGIES: NO KNOWN DIAGNOSED ALLERGIES. SOCIAL HISTORY: Significant for tobacco use of 1 pack of cigarettes per day for 40 years. The patient states that he stopped smoking 3 weeks ago. The patient admits to the consumption of 2 drinks per day for 30 years. The patient states that he stopped consuming alcohol 3 weeks ago also. FAMILY HISTORY: Significant for diabetes mellitus. The patient's mother was diagnosed with diabetes mellitus. PHYSICAL EXAMINATION: VITAL SIGNS: Temperature 97.9, pulse 59, respirations 18, and blood pressure 166/71. GENERAL: A 58-year-old gentleman, sitting on chair in examination room, in no acute distress. HEENT: Normocephalic and atraumatic. NECK: No nuchal rigidity. CHEST: Clear to auscultation. CV: Regular rate and rhythm. ABDOMEN: Soft. EXTREMITIES: A wound of the left third toe is present subsequent to amputation of the left third toe through the proximal phalanx. Granulation tissue is present within the wound margins. Necrotic and nonviable tissue present within the wound margins, it was debrided with an excisional full-thickness debridement with the use of a curette. No purulent drainage is associated with the wound. No erythema of the skin surrounding the wound is present. No maceration of the skin of the periwound is noted. A dorsalis pedis pulse is easily palpable on the left. No significant edema of the left foot is present on exam today. No bone is palpable with a curette within the wound margins on today's exam. NEUROLOGIC: Grossly nonfocal. ASSESSMENT AND PLAN: 1. Wound of left third toe subsequent to amputation of the left third toe through the proximal phalanx. The patient has completed a course of negative pressure therapy. Dressing changes of Xeroform gauze are to be performed on a daily basis after cleansing and irrigation. The patient is to continue Augmentin as previously prescribed. I will see Mr. Debby White again in 1 week. The patient will be seen by Dr. Cruz in 2 weeks. With the aid of a lamp shade assembler, the patient states that he understands and is in agreement with the preceding treatment plan. 2. Diabetes mellitus. Accu-Cheks will be obtained at the time of the patient's clinic visits. The patient has been told that for optimal wound healing, his blood glucoses should remain below 150. Job ID: [id number]
== END 2019-05-08 15:45 | disposition home or self-care (01) ==
LOC: WCC 15:44
PROVIDERS: ATTEND Family Medicine
DX: T81.89XD Other complications of procedures, not elsewhere classified, subsequent encounter (principal); E11.9 Type 2 diabetes mellitus without complications; Z89.422 Acquired absence of other left toe(s)
CPT/HCPCS: A4218; J2001

== ENCOUNTER 2019-05-15 12:45 | Outpatient (CLI) | payer BC ==
--- NOTE | 2019-05-15 14:05 | PRG ---
DATE OF SERVICE: 05/15/2019 SUBJECTIVE: Mr. Sebas White is a very pleasant 58-year-old gentleman, who presents to the Wound Center for evaluation of a wound of the left third toe subsequent to amputation of the left third toe through the proximal phalanx by Dr. Bakari Cruz on 04/24/2019 for treatment of osteomyelitis of the left third toe. Negative pressure therapy was initiated intraoperatively. Upon discharge from [facility], the patient was referred to the Wound Center for assistance with dressing changes of the wound VAC. The patient has completed a course of negative pressure therapy and he has been receiving dressing changes of Xeroform gauze on a daily basis after cleansing and irrigation as prescribed. OBJECTIVE: VITAL SIGNS: Temperature 97.6, pulse 58, respirations 18, and blood pressure 157/85. EXTREMITIES: A wound of the left third toe is present subsequent to amputation of the left third toe through the proximal phalanx. The dimensions of the wound are approximately 1.0 x 0.5 cm. Granulation tissue is present within the wound margins. Necrotic and nonviable tissue present within the wound margins was debrided with an excisional full-thickness debridement with the use of a curette and scissors. No purulent drainage is associated with the wound. No erythema of the skin surrounding the wound is present. No maceration of the skin of the periwound is noted. A dorsalis pedis pulse is easily palpable on the left. No significant edema of the left foot is present on exam today. No bone is palpable with a curette within the wound margins on exam today. ASSESSMENT AND PLAN: 1. Wound of left third toe subsequent to amputation of the left third toe through the proximal phalanx. The patient has completed a course of negative pressure therapy. Dressing changes of Xeroform gauze will be discontinued. Dressing changes of Promogran will be initiated today. These dressing changes are to be performed on a daily basis after cleansing and irrigation. I will see Mr. Debby White again in 1 week. The patient states he will be seen by Dr. Cruz in 2 weeks. With the aid of a first mate, the patient states that he understands and is in agreement with the preceding treatment plan. 2. Diabetes mellitus. Accu-Cheks will be obtained at the time of the patient's clinic visits. The patient has been reminded that for optimal wound healing, his blood glucoses should remain below 150. Job ID: [id number]
[2019-05-15] MEDS ORDERED: Sodium Chloride 0.9% 15 ML NEB ONE (16:28)
[2019-05-15] MEDS ORDERED: Lidocaine 2% PF 100 mg/5 ml Syringe ONE (16:28)
== END 2019-05-15 12:46 | disposition home or self-care (01) ==
LOC: WCC 12:45
PROVIDERS: ATTEND Family Medicine
DX: T81.89XD Other complications of procedures, not elsewhere classified, subsequent encounter (principal); E11.621 Type 2 diabetes mellitus with foot ulcer; S91.105D Unspecified open wound of left lesser toe(s) without damage to nail, subsequent encounter; Z89.422 Acquired absence of other left toe(s)
CPT/HCPCS: 11042; A4218; J2001

== ENCOUNTER 2019-05-22 13:35 | Outpatient (CLI) | payer BC ==
[~2019-05-22 13:35] MED LIST changes: -Lidocaine 2% PF 100 mg/5 ml Syringe ONE
--- NOTE | 2019-05-22 14:18 | PRG ---
DATE OF SERVICE: 05/22/2019 HISTORY: Mr. Sebas White is a very pleasant 58-year-old gentleman, who presents to the Wound Center for evaluation of a wound of the left third toe subsequent to amputation of the left third toe through the proximal phalanx by Dr. Bakari Cruz on 04/24/2019 for treatment of osteomyelitis of the left third toe. Negative-pressure therapy was initiated intraoperatively. Upon discharge from [facility], the patient was referred to the Wound Center for assistance with dressing changes of the wound VAC. The patient has completed a course of negative-pressure therapy. He subsequently received dressing changes of Xeroform gauze on a daily basis after cleansing and irrigation. At the time of the patient's last visit, Mr. Debby White was placed on dressing changes of Promogran. PHYSICAL EXAMINATION: VITAL SIGNS: Temperature 97.4, pulse 54, respirations 20, blood pressure 203/95. EXTREMITIES: A wound of the left third toe is present subsequent to amputation of the left third toe through the proximal phalanx. The dimensions of the wound are approximately 0.4 x 0.2 cm. Granulation tissue is present within the wound margins. Necrotic and nonviable tissue present within the wound margins was debrided with an excisional full-thickness debridement with the use of a curette. No purulent drainage is associated with the wound. No erythema of the skin surrounding the wound is present. No maceration of the skin of the periwound is noted. No significant edema of the left foot is present on exam today. No bone is palpable with a curette within the wound margins on today's exam. ASSESSMENT AND PLAN: 1. Wound of left third toe subsequent to amputation of the left third toe through the proximal phalanx. Dressing changes of Promogran will be continued on a daily basis after cleansing and irrigation. I will see Mr. Debby White again in 1 week. 2. Diabetes mellitus. Accu-Cheks will be obtained at the time of the patient's clinic visits. The patient has been reminded that for optimal wound healing, his blood glucoses should remain below 150. Job ID: [id number]
== END 2019-05-22 13:36 | disposition home or self-care (01) ==
LOC: WCC 13:35
PROVIDERS: ATTEND Family Medicine
DX: T81.89XA Other complications of procedures, not elsewhere classified, initial encounter (principal); E11.9 Type 2 diabetes mellitus without complications
CPT/HCPCS: 36416; A4218

== ENCOUNTER 2019-05-28 13:22 | Outpatient (CLI) | payer BC ==
[~2019-05-28 13:22] MED LIST changes: +Lidocaine 2% PF 100 mg/5 ml Syringe ONE
--- NOTE | 2019-05-28 13:57 | PRG ---
DATE OF SERVICE: 05/28/2019 HISTORY: Mr. Sebas White is a very pleasant 58-year-old gentleman, who presents to the Wound Center for evaluation of a wound of the left third toe subsequent to amputation of the left third toe through the proximal phalanx by Dr. Bakari Cruz on 04/24/2019 for treatment of osteomyelitis of the left third toe. Negative pressure therapy was initiated intraoperatively. Upon discharge from [facility], the patient was referred to the Wound Center for assistance with dressing changes of the wound VAC. The patient has completed a course of negative pressure therapy. He subsequently received dressing changes of Xeroform gauze on a daily basis after cleansing and irrigation. Most recently, the patient has been receiving dressing changes of Promogran on a daily basis after cleansing and irrigation. PHYSICAL EXAMINATION: VITAL SIGNS: Temperature 97.7, pulse 52, respirations 19, blood pressure 196/86. Accu-Chek 169. EXTREMITIES: A wound of the left third toe is present subsequent to amputation of the left third toe through the proximal phalanx. The dimensions of the wound are approximately 0.6 x 0.2 cm. Necrotic and nonviable tissue present within the wound margins was debrided with an excisional full-thickness debridement with the use of a curette. No purulent drainage is associated with the wound. No erythema of the skin surrounding the wound is present. No maceration of the skin of the periwound is noted. Callus over the left medial foot in the region of the first metatarsophalangeal joint is also present. The callus was excised with a partial thickness debridement with the use of scissors. No erythema of the left medial foot is present. No maceration of the skin of the left medial foot is present. No significant edema of the left foot is present on exam today. ASSESSMENT AND PLAN: 1. Wound of left third toe subsequent to amputation of the left third toe through the proximal phalanx. Dressing changes of Promogran will be continued on a daily basis after cleansing and irrigation. As stated above, the callus over the left medial foot was excised with an excisional partial thickness debridement with the use of scissors. The patient has been seen by the metal control worker today. I will see Mr. Debby White again on 06/25/2019. At this time, he will also be seen by the metal control worker. 2. Diabetes mellitus. The patient's Accu-Chek in clinic today is 169. The patient has been reminded that for optimal wound healing, his blood glucoses should remain below 150. Job ID: [id number]
== END 2019-05-28 13:23 | disposition home or self-care (01) ==
LOC: WCC 13:22
PROVIDERS: ATTEND Family Medicine
DX: T81.89XD Other complications of procedures, not elsewhere classified, subsequent encounter (principal); E11.621 Type 2 diabetes mellitus with foot ulcer; L97.819 Non-pressure chronic ulcer of other part of right lower leg with unspecified severity
CPT/HCPCS: 11042; 36416; 97597; A4218; J2001

== ENCOUNTER 2019-06-25 15:45 | Outpatient (CLI) | payer BC ==
--- NOTE | 2019-06-25 17:21 | PRG ---
DATE OF SERVICE: 06/25/2019 HISTORY: Mr. Sebas White is a very pleasant 58-year-old gentleman, who presents to the Wound Center for evaluation of a wound of the left third toe subsequent to amputation of the left third toe through the proximal phalanx by Dr. Bakari Cruz on 04/24/2019 for treatment of osteomyelitis of the left third toe. Negative pressure therapy was initiated intraoperatively. Upon discharge from [facility], the patient was referred to the Wound Center for assistance with dressing changes of the wound VAC. The patient has completed a course of negative pressure therapy. He subsequently received dressing changes of Xeroform gauze on a daily basis after cleansing and irrigation. Most recently, the patient has been receiving dressing changes of Promogran on a daily basis after cleansing and irrigation. PHYSICAL EXAMINATION: VITAL SIGNS: Temperature 97.8, pulse 53, respirations 18, blood pressure 175/83. Accu-Chek 117. EXTREMITIES: The wound of the left third toe has healed completely. Callus over the left medial foot in the region of the first metatarsophalangeal joint is also present. The callus was excised with a partial thickness debridement with the use of scissors. No erythema of the left medial foot is present. No maceration of the skin of the left medial foot is present. No significant edema of the left foot is present on exam today. ASSESSMENT AND PLAN: 1. Wound of left third toe subsequent to amputation of the left third toe through the proximal phalanx. As stated above, this wound has healed completely. Also stated above, the callus over the left medial foot was excised with an excisional partial thickness debridement with the use of scissors. The patient has been seen by the ring striker today. Mr. White has also been given a release in order to return to work. Mr. Debby White will be discharged from clinic today with followup on a p.r.n. basis. 2. Diabetes mellitus. The patient's Accu-Chek in clinic today is 117. Job ID: [id number]
== END 2019-06-25 15:46 | disposition home or self-care (01) ==
LOC: WCC 15:45
PROVIDERS: ATTEND Family Medicine
DX: T81.89XD Other complications of procedures, not elsewhere classified, subsequent encounter (principal); Z89.422 Acquired absence of other left toe(s); E11.9 Type 2 diabetes mellitus without complications